=== PATIENT | male | born 2000 | race African-American/Black ===

== ENCOUNTER 2025-02-12 16:41 | Emergency (ER) | payer BC, MEDICAID ==
[~2025-02-12] VITALS: Ht 188 cm; Wt 74.0 kg
[2025-02-12 16:46] VITALS: O2SAT 98
[2025-02-12] MEDS: LIDOCAINE HCL 1% 20ML VIAL INFIL ONE (17:30)
[2025-02-12] MEDS: HYDROCODONE/ACETAMINOPHEN 5/325MG TABLET PO ONE (18:02)
[2025-02-12] MEDS ORDERED: IBUP-2030 MT (18:25)
[2025-02-12 18:44] VITALS: BP 125/71; PULSE 52; RESP 14; TEMP 37; O2SAT 100
== END 2025-02-12 19:43 | disposition home or self-care (01) ==
LOC: ER 16:41
DX: S62.306A Unspecified fracture of fifth metacarpal bone, right hand, initial encounter for closed fracture (principal); X58.XXXA Exposure to other specified factors, initial encounter; Y93.89 Activity, other specified; Y92.89 Other specified places as the place of occurrence of the external cause; Y99.8 Other external cause status
CPT/HCPCS: 73120; 73130; 29125; 99284; J2003; A6449; Z7610; 99283